=== PATIENT | female | born 1965 | race Caucasian/White ===

== ENCOUNTER → 2018-07-07 18:30 | Outpatient (CLI) | payer MEDICARE | END | disposition home or self-care (01) | LOC: D.LABREF 18:30 | DX: R31.9 Hematuria, unspecified (principal) ==

== ENCOUNTER → 2018-07-13 13:13 | Outpatient (CLI) | payer MEDICARE | END | disposition home or self-care (01) | LOC: D.CT 13:13 | DX: R31.21 Asymptomatic microscopic hematuria (principal) ==

== ENCOUNTER → 2018-07-28 15:40 | Outpatient (CLI) | payer MEDICARE | END | disposition home or self-care (01) | LOC: D.RAD 15:40 | DX: N20.0 Calculus of kidney (principal) ==

== ENCOUNTER 2018-08-12 05:15 | Day surgery (SDC) | payer MEDICARE ==
[2018-08-11 09:27] LABS: HEMATOCRIT 35.4 % (36.0-48.0); HEMOGLOBIN 11.4 g/dL (12-16); MCH 30.3 pg (26.0-34.0); MCHC 32.2 g/dL (31.0-37.0); MCV 94.1 fL (80.0-100.0); MEAN PLATELET VOLUME 8.5 fL (7.4-10.4); RBC 3.76 10x6/uL (4.00-5.40); RDW 14.3 % (11.5-14.5); WBC 6.3 10x3/uL (4.8-10.8)
[~2018-08-12] VITALS: Ht 165.1 cm; Wt 94.8 kg
--- NOTE | ~2018-08-12 | OP ---
PATIENT NAME: NIDIA PACHECO MEDICAL RECORD: [id number] :61 LOCATION:D.OPS ADMISSION DATE: SURGEON: OLE ANDREW MD DATE OF OPERATION: 08/12/2018 SURGEON: Ole Andrew MD ANESTHESIA: MAC by Chaya Velarde CRNA. DIAGNOSIS: Right lower pole renal stone, 6 mm. PROCEDURE: Right ESWL times 3000 shocks. FINDINGS: Radiodense right lower pole renal stone, 6 mm in size. The stone did not break up after treatment. SPECIMENS: None. BLOOD LOSS: None. CLINICAL HISTORY: This is a 52-year-old female, who was found to have a right lower pole 6 mm renal stone on workup for hematuria. Earlier today, she had a right ureteral stent inserted. She comes now to have lithotripsy performed. Since she had IV antibiotics for the stent insertion, she did not need any further antibiotics today. DESCRIPTION OF PROCEDURE: The patient was placed on the treatment table. Fluoroscopy revealed the stone to be clearly visible in the right lower pole of the kidney. The stone was targeted in 2 planes. She was then given IV sedation and 3000 shocks were given to the stone. The stone did not appear to break up at the end of the treatment. I will see her back in followup in 1 week's time with a KUB. If the KUB shows that there has been no fragmentation of stone, I will arrange for her to have a right percutaneous nephrolithotomy to get the stone out. TRANSINT:[id number] Voice Confirmation ID: [id number] DOCUMENT ID: [id number] OLE ANDREW MD at 1401 CC: [id number] DICTATION DATE: 08/12/18 1323 PURCHASING MANAGER/SALES: 08/12/18 1328 REG [facility] [address] [place] [address]
--- NOTE | ~2018-08-12 | OP ---
PATIENT NAME: NIDIA PACHECO MEDICAL RECORD: [id number] :61 LOCATION:D.OPS ADMISSION DATE: SURGEON: OLE ANDREW MD DATE OF OPERATION: 08/12/2018 SURGEON: Ole Andrew MD ANESTHESIA: MAC by Yusef Kevin CRNA DIAGNOSIS: A 6 mm right lower pole renal stone. PROCEDURE: Cystoscopy, right retrograde pyelogram, right ureteral stent insertion 6-Citizen Of [place] x 24 cm with string attached. FINDINGS: Radiolucent stone. CLINICAL HISTORY: This is a 52-year-old female, who was worked up for microscopic hematuria. CT scan shows right lower pole 6 mm renal stone, which is not obstructive. I sent her to obtain a KUB to see if the stone is radiodense. The KUB reported that the stone was visible. She comes today for a right ureteral stent insertion to be followed later today by right lithotripsy of the stone. She is not allergic to any medications. She was given 2 grams of Ancef professional driver to the OR. DESCRIPTION OF PROCEDURE: The patient was given IV sedation. She was placed in the dorsal lithotomy position and prepped and draped. A 21-Citizen Of [place] cystoscope with 30-degree lens was used for visualization. She has single ureteral orifices bilaterally. No bladder tumors were seen. There is some bladder inflammation noted. An open-ended ureteral catheter was then inserted into the right ureteral orifice. Fluoroscopy did not reveal an obvious radiodensity. There is what looks like a clip from gallbladder surgery in this area. A retrograde pyelogram was performed and again no obvious filling defect was seen. Because of the age of our fluoroscopy equipment, sometimes we cannot see a stone on the fluoroscopy on the cysto table, but the stone is visible when the patient is brought to the lithotripsy table. Therefore, I proceeded with ureteral stent insertion. A Sensor wire was inserted through the lumen of the ureteral catheter up to the renal pelvis. The ureteral catheter was then removed entirely. A ureteral stent was then inserted over the wire up to the renal pelvis level in the proximal end. Once the stent was in correct position, the wire was completely removed. The distal end was pushed into the bladder using a pusher. The bladder was then emptied through the cystoscope sheath and the scope was removed. The string, which is on the distal end of the stent is maintained. It was taped to the suprapubic area with a small piece of Tegaderm. The patient was then awakened and brought to the recovery room. Later today, we will put her on the lithotripsy table and try to treat the stone. TRANSINT:[id number] Voice Confirmation ID: [id number] DOCUMENT ID: [id number] OPERATIVE REPORT [id number] NIDIA PACHECO ROBERT S MD at 1211 CC: [id number] DICTATION DATE: 08/12/18816 ANNEALING FURNACE OPERATOR: 08/12/18 0835 REG [facility] [address] [place] [address]
[~2018-08-12 05:15] MED LIST: BENICAR40 MG PO; CALAN SR180 MG PO; CLARITIN 10 MG10 MG PO; LAMICTAL200 M1 PO; LOVASTATIN40 MG PO; MOBIC7.5 MG PO; MULTI-DAY VITAM1 TAB PO; NUVIGIL150 MG PO; OMEPRAZOLE20 M1 PO; OPTIVE SENSITI1 EACH EACH EYE; PREMARIN1.25 MG PO; PROZAC20 MG PO
[2018-08-12 05:58] VITALS: BP 133/72; Ht 165.1 cm; Wt 94.8 kg
[2018-08-25] MEDS ORDERED: FLOMAX0.4 MG PO (14:38)
== END 2018-08-12 15:15 | disposition home or self-care (01) ==
LOC: D.OPS 05:15 → D.PAN 07:30 → D.OPS 07:30
PROVIDERS: Anesthesiology
DX: R31.29 Other microscopic hematuria (principal); N20.0 Calculus of kidney; Z01.812 Encounter for preprocedural laboratory examination

== ENCOUNTER → 2018-08-16 07:25 | Outpatient (CLI) | payer MEDICARE ==
[2018-08-12 05:58] VITALS: BMI 34.8
[~2018-08-16 07:25] MED LIST changes: +FLOMAX0.4 MG PO
== END | disposition home or self-care (01) ==
LOC: D.RAD 07:25
DX: N20.0 Calculus of kidney (principal)

== ENCOUNTER → 2018-08-20 08:57 | Outpatient (CLI) | payer MEDICARE ==
[2018-08-12 05:58] VITALS: BMI 34.8
== END | disposition home or self-care (01) ==
LOC: D.CT 08:57
DX: N20.0 Calculus of kidney (principal)

== ENCOUNTER 2018-08-26 06:55 | Outpatient (CLI) | payer MEDICARE ==
[2018-08-25 15:06] LABS: HEMOGLOBIN 11.6 g/dL (12-16); MCH 30.4 pg (26.0-34.0); MCHC 32.2 g/dL (31.0-37.0); MCV 94.2 fL (80.0-100.0); MEAN PLATELET VOLUME 8.4 fL (7.4-10.4); RBC 3.82 10x6/uL (4.00-5.40); RDW 13.6 % (11.5-14.5); WBC 7.4 10x3/uL (4.8-10.8)
[~2018-08-26] VITALS: Ht 152.4 cm; Wt 95.3 kg
[2018-08-26 07:21] VITALS: BP 129/72; Ht 152.4 cm; Wt 95.3 kg
== END 2018-08-26 09:05 | disposition home or self-care (01) ==
LOC: D.OPS 06:55 → EDSTATUS 09:00 → D.PAN 09:00 → D.OPS 09:00
PROVIDERS: Anesthesiology
DX: N20.0 Calculus of kidney (principal)

== ENCOUNTER → 2018-08-27 16:27 | Outpatient (CLI) | payer MEDICARE ==
[2018-08-26 07:21] VITALS: BMI 41.0
[2018-09-07 14:20] LABS: CALCULI - CA OXALATE DIHYDRATE 20 % (()); CALCULI - CA OXALATE MONOHYDR 75 % (()); CALCULI - COLOR Brown (()); CALCULI - WEIGHT 7.8 mg (())
== END | disposition home or self-care (01) ==
LOC: D.LABREF 16:27
PROVIDERS: Urology
DX: N20.0 Calculus of kidney (principal)

== ENCOUNTER 2020-03-23 09:00 | Outpatient (CLI) | payer MEDICARE ==
[2018-08-26 07:21] VITALS: BMI 41.0
== END 2020-03-23 10:00 | disposition home or self-care (01) ==
LOC: D.MAMMO 09:00
PROVIDERS: ATTEND Clinical Nurse Specialist Adult Health
DX: Z12.31 Encounter for screening mammogram for malignant neoplasm of breast (principal)

== ENCOUNTER → 2020-07-04 09:25 | Outpatient (CLI) | payer MEDICARE ==
[2018-08-26 07:21] VITALS: BMI 41.0
== END | disposition home or self-care (01) ==
LOC: D.MRI 09:25
PROVIDERS: ATTEND Family Medicine
DX: M25.362 Other instability, left knee (principal)

== ENCOUNTER 2020-07-11 08:33 | Inpatient (IN) | payer MEDICARE ==
[~2020-07-11] VITALS: Ht 167.6 cm; Wt 88.2 kg
--- NOTE | ~2020-07-11 | OP ---
PATIENT NAME: ANNA PACHECO MEDICAL RECORD: [id number] :61 [facility] AD[facility]ION DATE:07/25/20 SURGEON: SHWETHA GALLEGOS MD DATE OF OPERATION: 07/25/2020 PREOPERATIVE DIAGNOSIS: Osteoarthritis, left knee. POSTOPERATIVE DIAGNOSIS: Osteoarthritis, left knee. PROCEDURE PERFORMED: Left total knee arthroplasty. INDICATIONS FOR THE PROCEDURE: Ms. Pacheco is a 54-year-old female with history of left knee pain and arthritis. She has had pain for some time now, it is progressing to the point where it is difficult for her to perform ADLs and she has fallen. She has elected to proceed with surgery for left total knee arthroplasty. Risks, benefits, and alternatives of surgery were discussed with the patient and consent was obtained. DESCRIPTION OF PROCEDURE: The patient was met in the holding area where her identity and confirmation of procedure was performed. Left lower extremity was marked. She was taken to the operating room where she was placed supine on the operating table. Anesthesia was administered. Tourniquet was applied to left thigh. Left leg was prepped and draped in a sterile fashion. The patient received preoperative antibiotics as well as TXA and a timeout was performed before initiating the case. On initiation of the case, the leg was exsanguinated and the tourniquet was raised. Total tourniquet time was 120 minutes. A medial parapatellar approach was utilized for exposure. Incision was made over the anterior knee. While the knee was held in flexion, we incised through the skin and subcutaneous tissues dissected down to the extensor mechanism. The quad tendon was then incised along its medial border curving medially around the patella and down the medial border of the patellar tendon. Knee was then taken into extension. Tissue from the posterior fat pad of the patella was excised as well as tissue over the anterior distal femur. A flap of tissue off the medial tibial plateau was elevated and the portion of the medial meniscus was excised. The patella was then everted. The knee was brought back into flexion. Milan's line was marked and the cruciate ligaments were excised. The femoral tunnel was then drilled and our femoral guide was inserted. Bone and the femoral shaft was noted to be very hard and difficult to advance to our guide. Once we had it in place, the distal femoral cutting block was pinned into position. A distal femur cut was then completed and the femur was sized to a size 62.5. The cutting block was then attached and pinned into place. Her anterior, posterior and chamfer cuts were completed. Osteophytes were removed from the edges of the femur and our trial for a box cut was placed. It was positioned over the distal femur, pinned into place and then our box cut was completed using a reciprocating saw and osteotome. The femur was then retracted posterior, tibia was brought forward. The extramedullary guide for our tibial cut was then placed and adjusted for alignment. It was pinned into position to take 4-mm off the medial tibial plateau. Tibial cutting guide was then pinned into place and again checked for alignment. We were pleased with our alignment and our proximal tibial cut was completed. The bony pieces were removed and osteophytes were debrided from around the medial border. The tibia was sized to a size 67. The femoral trial was then placed. We attempted a trial with a size 10 poly, but there was noted to be some tightness in extension, but it was still loose in flexion. We therefore repeated our distal femur cut to take an additional 2-mm. Again, trialed with a size 10 and 12 OPERATIVE REPORT [id number] HERETH,ANNA MASSEY poly, had good fit, stability and range of motion with the size 12. We then turned our attention to the patella. The patella was everted. Towel clips were placed superior and inferior. It was then cut to the floor of the lateral facet. Patella was sized to a size 31 and drilled. The poly and femoral trials were then removed and the tibia was then again exposed. Tibia was then prepared using a reamer and punch. Trial implants were removed. The knee was irrigated thoroughly with saline. Joint solution was injected around the capsule, proximal tibia and the distal femur. Knee was repositioned in flexion. The bony ends were dried. The final components were cemented into place. Our trial poly was placed. Knee was held in full extension. All this was allowed to dry. Patella was held with the patellar clamp. Excess cement was removed throughout this process. Once the cement was dry, we again took it through range of motion with the size 12 poly, felt to have good fit and stability and our final posterior stabilized poly was placed and pinned into position. Knee was irrigated thoroughly with saline. A drain was placed in lateral gutter. Extensor mechanism was closed with the #1 Vicryl suture. Subcutaneous tissues were irrigated thoroughly with saline and the remainder of the joint solution was injected. Subcutaneous tissues were closed with 2-0 Vicryl. The skin was closed with abena. A sterile dressing was placed. The patient was turned back over to anesthesia. She was awakened, extubated, and taken to recovery room in stable condition. POSTOPERATIVE PLAN: The patient is going to be admitted to the floor for routine postoperative care. She received 24 hours postop antibiotics. Will be started on DVT prophylaxis tomorrow. Physical therapy will be consulted to assist with mobilization, weightbearing as tolerated on the left lower extremity. PLAN: Home with home health later this week. ANESTHESIA: General with peripheral nerve block. COMPLICATIONS: None. ESTIMATED BLOOD LOSS: 100 mL. TRANSINT:[id number] Voice Confirmation ID: [id number] DOCUMENT ID: [id number] SHWETHA GALLEGOS MD CC: [id number] DICTATION DATE: 07/25/20 1042 TIMBER GIRDLER: 07/25/20 1411 ADM IN [place] [id number] [place] [id number]
[2020-07-17] MEDS ORDERED: ADVIL200 MG PO (10:23)
[2020-07-17] MEDS ORDERED: VITAMIN B12 PO (11:00)
[2020-07-17] MEDS ORDERED: VITAMIN D3 PO (11:01)
[2020-07-17] MEDS ORDERED: FISH OIL 1,0001 CA1 PO (11:01)
[2020-07-18 10:21] LABS: BASOPHILS 0.2 % (0-2); EOSINOPHILS 1.7 % (0-7); HEMATOCRIT 35.7 % (36.0-48.0); HEMOGLOBIN 11.5 g/dL (12-16); IMMATURE GRANULOCYTES 0.3 % (0-5); LYMPHOCYTES 25.4 % (15-50); MCH 30.8 pg (26.0-34.0); MCHC 32.2 g/dL (31.0-37.0); MCV 95.7 fL (80.0-100.0); MEAN PLATELET VOLUME 8.9 fL (7.4-10.4); MONOCYTES 8.1 % (2-11); NEUTROPHILS 64.3 % (40-80); PLATELET COUNT 340 10x3/uL (130-400); RBC 3.73 10x6/uL (4.00-5.40); RDW 13.7 % (11.5-14.5); WBC 6.5 10x3/uL (4.8-10.8)
[2020-07-18 10:22] LABS: BILIRUBIN NEGATIVE (NEGATIVE); KETONE NEGATIVE (NEGATIVE); NITRITE NEGATIVE (NEGATIVE); UROBILINOGEN NORMAL (NORMAL)
[2020-07-18 10:31] LABS: APTT 32.6 SECONDS (22.8-39.4); INR 0.97 (0.85-1.17); PROTIME 12.9 SECONDS (11.6-15.0)
[2020-07-18 10:35] LABS: ANION GAP 12.5 mmol/L (8-16); CALCIUM 9.3 mg/dL (8.5-10.1); CARBON DIOXIDE 25.6 mmol/L (21.0-32.0); CREATININE - SERUM 0.9 mg/dL (0.6-1.3); POTASSIUM - SERUM 4.1 mmol/L (3.5-5.1)
[2020-07-25 05:57] VITALS: BP 131/69; BMI 31.3
--- NOTE | 2020-07-25 11:12 | NUR ---
ROMAZICAN GIVEN PER DR JOSEPH. BENITOT UNABLE TO COMPLETE SENTENCES. DOSES OFF EASILY
[2020-07-25 11:44] VITALS: BP 149/72
[2020-07-25 16:56] VITALS: Ht 167.6 cm; Wt 88.2 kg
[2020-07-25 20:00] VITALS: BP 145/67
--- NOTE | 2020-07-25 20:00 | NUR ---
RESTING IN BED, AROUSED EASILY, DENIES PAIN OR NEEDS AT THIS TIME, SEE SHIFT ASSESSMENT, CALL LIGHT IN REACH
[2020-07-26 04:30] VITALS: BP 120/56
[2020-07-26 04:48] LABS: BASOPHILS 0.1 % (0-2); EOSINOPHILS 0.4 % (0-7); HEMATOCRIT 30.2 % (36.0-48.0); HEMOGLOBIN 9.3 g/dL (12-16); IMMATURE GRANULOCYTES 0.3 % (0-5); LYMPHOCYTES 17.4 % (15-50); MCHC 30.8 g/dL (31.0-37.0); MCV 97.4 fL (80.0-100.0); MEAN PLATELET VOLUME 8.7 fL (7.4-10.4); MONOCYTES 9.1 % (2-11); NEUTROPHILS 72.7 % (40-80); PLATELET COUNT 286 10x3/uL (130-400); RDW 14.2 % (11.5-14.5); WBC 9.5 10x3/uL (4.8-10.8)
[2020-07-26 05:07] LABS: CALCIUM 8.2 mg/dL (8.5-10.1); CARBON DIOXIDE 25.8 mmol/L (21.0-32.0); POTASSIUM - SERUM 3.8 mmol/L (3.5-5.1)
--- NOTE | 2020-07-26 06:04 | NUR ---
WOODS CATH DC'D AT THIS TIME, CPM ON TOLERATING WELL
--- NOTE | 2020-07-26 07:54 | NUR ---
PT AWAKE AND ALERT. C/O PAIN TO KNEE BUT DOES NOT WANT PAIN MEDS AT THIS TIME. IS WAITING TO GET UP AND AROUND WITH THERAPY. CURRENTLY STILL IN CPM MACHINE. CARLINE DRAIN WITH SMALL AMOUNT OF DRAINAGE NOTED. WOODS WAS REMOVED ON PRIOR SHIFT. DOES NOT VOICE NEED TO PEE YET. CALL LIGHT IN REACH
[2020-07-26 07:57] VITALS: BP 149/59
--- NOTE | 2020-07-26 09:48 | NUR ---
AMBULATED WITH THERAPY AFTER VOIDING IN BSC. SITTING IN RECLINER WITH ALARM ON. PAIN 6/10 AND PAIN PILL GIVEN. CALL LIGHT IN REACH
[2020-07-26 11:54] VITALS: BP 140/62
--- NOTE | 2020-07-26 12:53 | MORECARE ---
CASE MANAGEMENT DISCHARGE SUMMARY PATIENT: ANNA PACHECO SHILPA UNIT: [id number] ADM DATE: 07/25/20 AGE: 54 : 61 SEX: F ROOM/BED: D.1212 AUTHOR: LONNY WOODWARD PHYSICIAN: REFERRING PHYSICIAN: SHWETHA GALLEGOS MD DATE OF SERVICE: 07/26/20 Discharge Plan Patient Name: ANNA PACHECO [facility] [facility] 1965 Planned Disposition: Home with Home Health Anticipated Discharge Date: 07/26/20 Discharge Date: Expected LOS: 1 Initial Reviewer: [email or web address] Initial Review Date: 07/25/2020 Generated: 07/26/20 1:52 pm DCPIA - Discharge Planning Initial Assessment Updated by [email or web address]: Jennie Reyes on 07/26/20 12:50 pm * Is the patient Alert and Oriented? Yes * How many steps to enter\exit or inside your home? none * PCP DR Vinicio Bonner [place] * Pharmacy [facility] in [place], [place] * Preadmission Environment Home Alone * ADLs Independent * Equipment Rolling Walker * Other Equipment Denies any additional DME * List name and contact numbers for known caregivers / representatives who currently or will assist patient after discharge: [facility]- [phone] * Verbal permission to speak to the caregivers and representatives has been obtained from the patient. No * Community resources currently utilized None * Please name any agencies selected above. Patient reportedly had [facility] previously * Additional services required to return to the preadmission environment? Yes * Can the patient safely return to the preadmission environment? Yes * Has this patient been hospitalized within the prior 30 days at any hospital? No Patient Name: ANNA PACHECO Page 88828 at 1253 All edits/amendments must be made on the electronic document DICTATION DATE: 07/26/20 125 PAPER GOODS MACHINE OPERATOR: LASHELL 07/26/20 1252 RPT#: [id number] DC DATE: STATUS: ADM IN [facility] [address] [place] [address] END OF REPORT
--- NOTE | 2020-07-26 13:10 | MORECARE ---
CASE MANAGEMENT DISCHARGE SUMMARY PATIENT: ANNA PACHECO SHILPA UNIT: [id number] ADM DATE: 07/25/20 AGE: 54 : 61 SEX: F ROOM/BED: D.1212 AUTHOR: CRISSY,DOC PHYSICIAN: REFERRING PHYSICIAN: SHWETHA GALLEGOS MD DATE OF SERVICE: 07/26/20 Discharge Plan Patient Name: ANNA PACHECO Facility: [facility]:[place] : 1965 Planned Disposition: Home with Home Health Anticipated Discharge Date: 07/26/20 Discharge Date: Expected LOS: 1 Initial Reviewer: [email or web address] Initial Review Date: 07/25/2020 Generated: 07/26/20 2:09 pm Comments DCP- Discharge Planning Updated by [email or web address]: Jennie Reyes on 07/26/20 12:[address] CM met with the patient at the bedside. She is anxious for discharge today. She will be discharged to her cousin's home in [place]. She will be staying with them for her recovery. She previously had [facility] home health and desired [facility] again. PCP- DR [facility]- [facility] DME- at patient bedside- Wheeled walker and Bedside commode Transportation will be provided by her cousins. Contact- [facility] [place] [place]- [phone] as per the patient Patient choice form signed for [facility]. Copy to the patient and copy to the chart. DCPIA - Discharge Planning Initial Assessment Updated by [email or web address]: Jennie Reyes on 07/26/20 12:50 pm * Is the patient Alert and Oriented? Yes * How many steps to enter\exit or inside your home? none * PCP DR Vinicio Bonner, [place] * [facility] [place] * Preadmission Environment Home Alone * ADLs Independent * Equipment Rolling Walker * Other Equipment Denies any additional DME * List name and contact numbers for known caregivers / representatives who currently or will assist patient after discharge: Wm Cruz- [facility]- [phone] * Verbal permission to speak to the caregivers and representatives has been obtained from the patient. No * Community resources currently utilized None * Please name any agencies selected above. Patient reportedly had [facility] previously * Additional services required to return to the preadmission environment? Yes * Can the patient safely return to the preadmission environment? Yes * Has this patient been hospitalized within the prior 30 days at any hospital? No Last DP export: 07/26/20 11:53 a Patient Name: ANNA PCAHECO Page 53373 at 1310 All edits/amendments must be made on the electronic document DICTATION DATE: 07/26/20 130 TRIM MOUNTER: LASHELL 07/26/20 130 RPT#: [id number] DC DATE: STATUS: ADM IN [facility] [address] [place] [address] END OF REPORT
--- NOTE | 2020-07-26 13:26 | MORECARE ---
CASE MANAGEMENT DISCHARGE SUMMARY PATIENT: ANNA PACHECO UNIT: [id number] ADM DATE: 07/25/20 AGE: 54 : 61 SEX: F ROOM/BED: D.1212 AUTHOR: CRISSY,DOC PHYSICIAN: REFERRING PHYSICIAN: SHWETHA GALLEGOS MD DATE OF SERVICE: 07/26/20 Discharge Plan Patient Name: ANNA PACHECO Facility: [facility]:[place] : 1965 Planned Disposition: Home with Home Health Anticipated Discharge Date: 07/26/20 Discharge Date: Expected LOS: 1 Initial Reviewer: [email or web address] Initial Review Date: 07/25/2020 Generated: 07/26/20 2:25 pm Comments DCP- Discharge Planning Updated by [id number]: Jennie Reyes on 07/26/20 12:[address] TC TO [facility]. SPOKE WITH ABEL REGARDING REFERRAL. FOR PHYSICAL THERAPY AND HOME HEALTH. [facility] WILL ACCEPT REFERRAL. CM FAXED CLINICAL & MD ORDER. DCP- Discharge Planning Updated by [email or web address]: Jennie Reyes on 07/26/20 12:[address] CM met with the patient at the bedside. She is anxious for discharge today. She will be discharged to her cousin's home in [place]. She will be staying with them for her recovery. She previously had [facility] health and desired [facility] again. PCP- DR Mooney [facility]- [facility] DME- at patient bedside- Wheeled walker and Bedside commode Transportation will be provided by her cousins. Contact- Wm Cruz- [facility] in [place], [place]- [phone] as per the patient Patient choice form signed for [facility]. Copy to the patient and copy to the chart. DCPIA - Discharge Planning Initial Assessment Updated by [email or web address]: Jennie Reyes on 07/26/20 12:50 pm * Is the patient Alert and Oriented? Yes * How many steps to enter\exit or inside your home? none * PCP DR Vinicio Bonner, [place] * [facility] [place], [place] * Preadmission Environment Home Alone * ADLs Independent * Equipment Rolling Walker * Other Equipment Denies any additional DME * List name and contact numbers for known caregivers / representatives who currently or will assist patient after discharge: Wm Cruz- [facility]- [phone] * Verbal permission to speak to the caregivers and representatives has been obtained from the patient. No * Community resources currently utilized None * Please name any agencies selected above. Patient reportedly had [facility] previously * Additional services required to return to the preadmission environment? Yes * Can the patient safely return to the preadmission environment? Yes * Has this patient been hospitalized within the prior 30 days at any hospital? No Coverage Notice Reviewer: [email or web address] Melony Reyes Notice Issued Date-Time: 07/26/2020 12:42 Notice Type: Patient Choice Letter Notice Delivered To: Patient Relationship to Patient: Self Elementary Reading Tutor Name: Delivery Method: HAND - Hand Delivered Magdalena Days: Prior Verbal Notification: Recipient Understood Notice: Yes Recipient Signature: Yes Med Rec Note Co-signed by Attending: Coverage Notice Comment: patient choice for home health signed. patient requested [facility] which she [facility] Last DP export: 07/26/20 12:10 p Patient Name: ANNA PACHECO Page 42158 at 1326 All edits/amendments must be made on the electronic document DICTATION DATE: 07/26/20 132 LEGAL RECRUITER: LASHELL 07/26/20 1325 RPT#: [id number] DC DATE: STATUS: ADM IN [facility] [address] [place] [address] END OF REPORT
[2020-07-26 15:00] VITALS: BP 174/76
[2020-07-26] MEDS ORDERED: ELIQUIS2.5 MG PO (15:44)
[2020-07-26] MEDS ORDERED: NORCO 7.5-3251 EACH PO (15:45)
--- NOTE | 2020-07-26 15:47 | MORECARE ---
CASE MANAGEMENT DISCHARGE SUMMARY PATIENT: ANNA PACHECO UNIT: [id number] ADM DATE: 07/25/20 AGE: 54 : 61 SEX: F ROOM/BED: D.1212 AUTHOR: CRISSY,DOC PHYSICIAN: REFERRING PHYSICIAN: SHWETHA GALLEGOS MD DATE OF SERVICE: 07/26/20 Discharge Plan Patient Name: ANNA PACHECO Facility: [facility]:[place] : 1965 Planned Disposition: Home with Home Health Anticipated Discharge Date: 07/26/20 Discharge Date: Expected LOS: 1 Initial Reviewer: [email or web address] Initial Review Date: 07/25/2020 Generated: 07/26/20 4:47 pm Comments DCP- Discharge Planning Updated by [email or web address]: Jennie Reyes on 07/26/20 2:[address] CM TELEPHONED [facility] TO ADVISE OF DISCHARGE FOR 07/27/20. SPOKE WITH ABEL. DCP- Discharge Planning Updated by [email or web address]: Jennie Reyes on 07/26/20 12:[address] TC [facility]. SPOKE WITH ABEL REGARDING REFERRAL. FOR PHYSICAL THERAPY AND HOME HEALTH. [facility] WILL ACCEPT REFERRAL. CM FAXED CLINICAL & MD ORDER. DCP- Discharge Planning Updated by [email or web address]: Jennie Reyes on 07/26/20 12:[address] CM met with the patient at the bedside. She is anxious for discharge today. She will be discharged to her cousin's home in [place]. She will be staying with them for her recovery. She previously had [facility] home health and desired [facility] again. PCP- DR Mooney Pharmacy- [facility] DME- at patient bedside- Wheeled walker and Bedside commode Transportation will be provided by her cousins. Contact- Wm Cruz- [facility] in [place], [place]- [phone] as per the patient Patient choice form signed for [facility]. Copy to the patient and copy to the chart. DCPIA - Discharge Planning Initial Assessment Updated by [email or web address]: Jennie Reyes on 07/26/20 12:50 pm * Is the patient Alert and Oriented? Yes * How many steps to enter\exit or inside your home? none * PCP DR Vinicio Bonner, [place] * Pharmacy [facility] in [place], [place] * Preadmission Environment Home Alone * ADLs Independent * Equipment Rolling Walker * Other Equipment Denies any additional DME * List name and contact numbers for known caregivers / representatives who currently or will assist patient after discharge: Wm Cruz- [facility]- [phone] * Verbal permission to speak to the caregivers and representatives has been obtained from the patient. No * Community resources currently utilized None * Please name any agencies selected above. Patient reportedly had [facility] previously * Additional services required to return to the preadmission environment? Yes * Can the patient safely return to the preadmission environment? Yes * Has this patient been hospitalized within the prior 30 days at any hospital? No Coverage Notice Reviewer: [email or web address] Melony Reyes Notice Issued Date-Time: 07/26/2020 12:42 Notice Type: Patient Choice Letter Notice Delivered To: Patient Relationship to Patient: Self Buyer Tobacco Head Name: Delivery Method: HAND - Hand Delivered Magdalena Days: Prior Verbal Notification: Recipient Understood Notice: Yes Recipient Signature: Yes Med Rec Note Co-signed by Attending: Coverage Notice Comment: patient choice for home health signed. patient requested [facility] which she [facility] Last DP export: 07/26/20 12:26 p Patient Name: ANNA PACHECO Page 13367 at 1547 All edits/amendments must be made on the electronic document DICTATION DATE: 07/26/20 154 DETECTIVE SUPERVISOR: LASHELL 07/26/20 1547 RPT#: [id number] DC DATE: STATUS: ADM IN [facility] [address] [place] [address] END OF REPORT
--- NOTE | 2020-07-26 17:00 | NUR ---
CPM PLACED ON PT. NO COMPLAINTS OF PAIN AT PRESENT. PANKAJ BLANCHARD REMAIN ON WITH SCDS. BED ALARM ON. CALL LIGHT IN REACH
--- NOTE | 2020-07-26 19:36 | NUR ---
RESTING IN BED, CPM IN USE DENIES PAIN OR NEEDS AT THIS TIME, SEE SHIFT ASSESSMENT, CALL LIGHT IN REACH
[2020-07-26 20:30] VITALS: BP 183/79
[2020-07-27 04:30] VITALS: BP 180/83
[2020-07-27 05:06] LABS: BASOPHILS 0.3 % (0-2); CALC OSMOLALITY 278 mosm/kg (275-300); CALCIUM 8.8 mg/dL (8.5-10.1); CARBON DIOXIDE 26.6 mmol/L (21.0-32.0); CHLORIDE - SERUM 104 mmol/L (98-107); EOSINOPHILS 0.7 % (0-7); GLUCOSE 119 mg/dL (74-106); HEMATOCRIT 29.7 % (36.0-48.0); HEMOGLOBIN 9.3 g/dL (12-16); IMMATURE GRANULOCYTES 0.1 % (0-5); MCH 30.2 pg (26.0-34.0); MCHC 31.3 g/dL (31.0-37.0); MCV 96.4 fL (80.0-100.0); MEAN PLATELET VOLUME 8.8 fL (7.4-10.4); MONOCYTES 10.3 % (2-11); NEUTROPHILS 71.6 % (40-80); PLATELET COUNT 289 10x3/uL (130-400); POTASSIUM - SERUM 3.9 mmol/L (3.5-5.1); RBC 3.08 10x6/uL (4.00-5.40); RDW 14.1 % (11.5-14.5); SODIUM 139 mmol/L (136-145); UREA NITROGEN 12 mg/dL (7-18)
[2020-07-27 05:14] LABS: CREATININE - SERUM 0.6 mg/dL (0.6-1.3); eGFR NON AFRICAN AMERICAN > 90 mL/min (90-120)
--- NOTE | 2020-07-27 05:45 | NUR ---
PLACED ON CPM, TOLERATIGN WELL
[2020-07-27 07:35] VITALS: BP 160/82
--- NOTE | 2020-07-27 07:38 | NUR ---
AWAKENED PT FOR VITAL SIGNS. STATES PAIN 4/10 BUT IS COMFORTABLE. CURRENTLY IN CPM MACHINE. SCDS AND PANKAJ HOSE ON BILAT. STATES IS GOING HOME TODAY. DRESSING TO LEFT KNEE CLEAN DRY AND INTACT. CALL LIGHT IS REACH
--- NOTE | 2020-07-27 08:28 | NUR ---
CPM MACHINE REMOVED. STATES PAIN IS UNCOMFORTABLE 5/10 BUT DOESNT WANT ANY MEDS AT THIS TIME. PARTAIL BATH COMPLETED. CALL LIGHT IN REACH
--- NOTE | 2020-07-27 10:14 | MORECARE ---
CASE MANAGEMENT DISCHARGE SUMMARY PATIENT: ANNA PACHECO UNIT: [id number] ADM DATE: 07/25/20 AGE: 54 : 61 SEX: F ROOM/BED: D.1212 AUTHOR: CRISSY,DOC PHYSICIAN: REFERRING PHYSICIAN: SHWETHA GALLEGOS MD DATE OF SERVICE: 07/27/20 Discharge Plan Patient Name: ANNA PACHECO Facility: [facility]:[place] : 1965 Planned Disposition: Home with Home Health Anticipated Discharge Date: 07/26/20 Discharge Date: Expected LOS: 1 Initial Reviewer: [email or web address] Initial Review Date: 07/25/2020 Generated: 07/27/20 11:13 am Comments DCP- Discharge Planning Updated by [email or web address]: Jennie Reyes on 07/26/20 2:[address] [facility] TO ADVISE OF DISCHARGE FOR 07/27/20. SPOKE WITH ABEL. DCP- Discharge Planning Updated by [email or web address]: Jennie Reyes on 07/26/20 12:[address] TC TO [facility]. SPOKE WITH ABEL REGARDING REFERRAL. FOR PHYSICAL THERAPY AND HOME HEALTH. [facility] WILL ACCEPT REFERRAL. CM FAXED CLINICAL & MD ORDER. DCP- Discharge Planning Updated by [email or web address]: Jennie Reyes on 07/26/20 12:[address] CM met with the patient at the bedside. She is anxious for discharge today. She will be discharged to her cousin's home in [place]. She will be staying with them for her recovery. She previously had [facility] home health and desired [facility] again. PCP- DR [facility]oney [facility]- [facility] DME- at patient bedside- Wheeled walker and Bedside commode Transportation will be provided by her cousins. Contact- Wm Cruz- Anthony tejal in [place], [place]- [phone] as per the patient Patient choice form signed for [facility]. Copy to the patient and copy to the chart. DCPIA - Discharge Planning Initial Assessment Updated by [email or web address]: Jennie Reyes on 07/26/20 12:50 pm * Is the patient Alert and Oriented? Yes * How many steps to enter\exit or inside your home? none * PCP DR Vinicio Bonner, [place] * Pharmacy [facility] in [place], [place] * Preadmission Environment Home Alone * ADLs Independent * Equipment Rolling Walker * Other Equipment Denies any additional DME * List name and contact numbers for known caregivers / representatives who currently or will assist patient after discharge: Wm Cruz- [place]- [phone] * Verbal permission to speak to the caregivers and representatives has been obtained from the patient. No * Community resources currently utilized None * Please name any agencies selected above. Patient reportedly had [facility] Home Health previously * Additional services required to return to the preadmission environment? Yes * Can the patient safely return to the preadmission environment? Yes * Has this patient been hospitalized within the prior 30 days at any hospital? No External Providers [facility] Next Contact Date: Service Request Date: Service Type: Resolution: Reviewer: Comments: Coverage Notice Reviewer: [email or web address] Melony Reyes Notice Issued Date-Time: 07/26/2020 12:42 Notice Type: Patient Choice Letter Notice Delivered To: Patient Relationship to Patient: Self Avionics Mechanic Name: Delivery Method: HAND - Hand Delivered Magdalena Days: Prior Verbal Notification: Recipient Understood Notice: Yes Recipient Signature: Yes Med Rec Note Co-signed by Attending: Coverage Notice Comment: patient choice for home health signed. patient requested [facility] home health which she had previously Last DP export: 07/26/20 2:47 p Patient Name: ANNA PACHECO Page [id number] at 1014 All edits/amendments must be made on the electronic document DICTATION DATE: 07/27/20 1013 HYDROELECTRIC SYSTEMS TECHNICIAN: LASHELL 07/27/20 1013 RPT#: [id number] DC DATE: STATUS: ADM IN [facility] [address] [place] [address] END OF REPORT
--- NOTE | 2020-07-27 11:07 | NUR ---
SALINE LOCK REMOVED. DRESSING APPLIED. ASSISTED TO BSC. AWAITING RIDE HOME. CALL LIGHT IN REACH
--- NOTE | 2020-07-27 11:39 | NUR ---
PT RIDE HERE. DISCHARGE INSTRUCTIONS REVIEWED WITH PT AND RIDE. QUESTIONS ANSWERED. TO FRONT DOOR WITH BELONGINGS PER WC.
--- NOTE | 2020-07-30 12:13 | MORECARE ---
CASE MANAGEMENT DISCHARGE SUMMARY PATIENT: ANNA PACHECO [place] UNIT: [id number] ADM DATE: 07/25/20 AGE: 54 : 61 SEX: F ROOM/BED: D.1212 AUTHOR: CRISSY,DOC PHYSICIAN: REFERRING PHYSICIAN: SHWETHA GALLEGOS MD DATE OF SERVICE: 07/30/20 Discharge Plan Patient Name: ANNA PACHECO Facility: [facility]:[place] : 1965 Planned Disposition: Home with Home Health Anticipated Discharge Date: 07/26/20 Discharge Date: 07/27/2020 Expected LOS: 1 Initial Reviewer: [email or web address] Initial Review Date: 07/25/2020 Generated: 07/30/20 1:12 pm Comments DCP- Discharge Planning Updated by [email or web address]: Jennie Reyes on 07/26/20 2:[address] CM [address]LEPHONED [facility] TO ADVISE OF DISCHARGE FOR 07/27/20. SPOKE WITH ABEL. DCP- Discharge Planning Updated by [email or web address]: Jennie Reyes on 07/26/20 12:[address] TC TO [facility]. SPOKE WITH ABEL REGARDING REFERRAL. FOR PHYSICAL THERAPY AND HOME HEALTH. [facility] WILL ACCEPT REFERRAL. CM FAXED CLINICAL & MD ORDER. DCP- Discharge Planning Updated by [email or web address]: Jennie Reyes on 07/26/20 12:[address] CM met with the patient at the bedside. She is anxious for discharge today. She will be discharged to her cousin's home in [place]. She will be staying with them for her recovery. She previously had [facility] home health and desired [facility] again. PCP- DR Mooney Pharmacy- [facility] DME- at patient bedside- Wheeled walker and Bedside commode Transportation will be provided by her cousins. Contact- Wm Cruz- Rosalina Anthony tejal in [place], [place]- [phone] as per the patient Patient choice form signed for [facility]. Copy to the patient and copy to the chart. DCPIA - Discharge Planning Initial Assessment Updated by [email or web address]: Jennie Reyes on 07/26/20 12:50 pm * Is the patient Alert and Oriented? Yes * How many steps to enter\exit or inside your home? none * PCP DR Vinicio Bonner, [place] * Pharmacy [facility] in [facility] [place] * Preadmission Environment Home Alone * ADLs Independent * Equipment Rolling Walker * Other Equipment Denies any additional DME * List name and contact numbers for known caregivers / representatives who currently or will assist patient after discharge: Wm Cruz- [facility]- [phone] * Verbal permission to speak to the caregivers and representatives has been obtained from the patient. No * Community resources currently utilized None * Please name any agencies selected above. Patient reportedly had [facility] previously * Additional services required to return to the preadmission environment? Yes * Can the patient safely return to the preadmission environment? Yes * Has this patient been hospitalized within the prior 30 days at any hospital? No Coverage Notice Reviewer: [email or web address] Melony Reyes Notice Issued Date-Time: 07/26/2020 12:42 Notice Type: Patient Choice Letter Notice Delivered To: Patient Relationship to Patient: Self Miner Assistant Name: Delivery Method: HAND - Hand Delivered Magdalena Days: Prior Verbal Notification: Recipient Understood Notice: Yes Recipient Signature: Yes Med Rec Note Co-signed by Attending: Coverage Notice Comment: patient choice for home health signed. patient requested [facility] which she had previously Last DP export: 07/27/20 9:14 a Patient Name: ANNA PACHECO Page [id number] at 1213 All edits/amendments must be made on the electronic document DICTATION DATE: 07/30/20 1213 NUTRITION WORKER: LASHELL 07/30/20 1213 RPT#: [id number] DC DATE:07/27/20 STATUS: DIS IN [facility] [address] [place] [address] END OF REPORT
== END 2020-07-27 11:39 | disposition home health service (06) | DRG 470 ==
LOC: D.SDCHOLD 07-18 10:00 → D.M3 07-25 05:35 → D.SDCHOLD 07-25 07:30 → D.M3 07-25 11:48
PROVIDERS: Family Medicine; ADMIT Orthopaedic Surgery; ATTEND Orthopaedic Surgery
PROC: 0SRD0JZ Replacement of Left Knee Joint with Synthetic Substitute, Open Approach (ICD-10-PCS; principal; 2020-07-25 07:30)
DX: M17.12 Unilateral primary osteoarthritis, left knee (principal); I10 Essential (primary) hypertension; G40.909 Epilepsy, unspecified, not intractable, without status epilepticus; E78.5 Hyperlipidemia, unspecified; Z72.0 Tobacco use

== ENCOUNTER 2021-04-01 14:00 | Outpatient (CLI) | payer MEDICARE ==
[2020-07-25 16:56] VITALS: BMI 31.3
[~2021-04-01 14:00] MED LIST changes: +ADVIL200 MG PO; +ELIQUIS2.5 MG PO; +FISH OIL 1,0001 CA1 PO; +NORCO 7.5-3251 EACH PO; +VITAMIN B12 PO; +VITAMIN D3 PO
== END 2021-04-01 23:59 | disposition home or self-care (01) ==
LOC: D.MAMMO 14:00
PROVIDERS: ATTEND Clinical Nurse Specialist Adult Health
DX: Z12.31 Encounter for screening mammogram for malignant neoplasm of breast (principal)